=== PATIENT | female | born 1995 | race Caucasian/White ===

== ENCOUNTER 2018-05-11 16:36 | Emergency (ER) | payer MEDICAID | END 2018-05-11 19:05 | disposition home or self-care (01) | LOC: FTE 16:36 | DX: O99.511 Diseases of the respiratory system complicating pregnancy, first trimester (principal); J45.901 Unspecified asthma with (acute) exacerbation; Z3A.08 8 weeks gestation of pregnancy | CPT/HCPCS: 99283; Z7502 ==